=== PATIENT | female | born 1955 | race Caucasian/White ===

== ENCOUNTER 2016-10-01 22:42 | Emergency (ER) | payer BC ==
[2016-10-01 22:47] VITALS: RESP 16
[2016-10-01] MEDS ORDERED: KETOROLAC TROMETHAMINE 30 MG/ML SOL IM ONE (23:20)
[2016-10-01] MEDS ORDERED: KETOROLAC TROMETHAMINE 30 MG/ML SOL ONE (23:21)
[2016-10-02 00:34] VITALS: TEMP 98.3; O2SAT 97
[2016-10-02 00:37] VITALS: BP 145/90; PULSE 95
== END 2016-10-02 00:23 | disposition home or self-care (01) ==
LOC: ED 22:42
DX: S82.51XA Displaced fracture of medial malleolus of right tibia, initial encounter for closed fracture (principal); S82.831A Other fracture of upper and lower end of right fibula, initial encounter for closed fracture; X50.1XXA Overexertion from prolonged static or awkward postures, initial encounter
CPT/HCPCS: 27825; 73610 ×2; J1885; 96372; 99285; E0114